=== PATIENT | male | born 1995 | race Hispanic/Latino ===

== ENCOUNTER 2017-01-04 17:02 | Emergency (ER) | payer SELFPAY ==
[~2017-01-04] VITALS: Ht 158.8 cm; Wt 150.0 kg
[~2017-01-04 17:02] MED LIST: NAPROSYN500 MG OR; NO HOME MEDS; ZOFRAN ODT8 MG OR
[2017-01-04] MEDS ORDERED: PENICILLN VK500 MG PO (18:21)
[2017-01-04] MEDS ORDERED: LORTAB 5-325 MG1 TAB PO (18:21)
[2017-01-04 18:50] VITALS: BP 131/89
== END 2017-01-04 18:50 | disposition home or self-care (01) | DRG 159 ==
LOC: ED 17:02
DX: K08.89 Other specified disorders of teeth and supporting structures (principal); F17.210 Nicotine dependence, cigarettes, uncomplicated; K02.9 Dental caries, unspecified